=== PATIENT | male | born 1985 | race Two or more races ===

== ENCOUNTER 2017-01-19 11:25 | Emergency (ER) | payer SELFPAY ==
[2017-01-19] MEDS ORDERED: TETANUS/DIPHTHERIA/PERTUSSIS 0.5 ML SYRINGE IM ONE ×2 (12:48→13:04)
--- NOTE | 2017-01-19 12:49 | ED Physician Documentation ---
PD HPI UPPER EXT INJURY - Stated complaint Stated Complaint: LT MIDDLE FINGER LAC - Chief complaint Chief Complaint: Laceration - History obtained from History obtained from: Patient - History of Present Illness Location: Other (Right-handed gentleman with unknown tetanus status was working on his own roof at home and lost his balance and impacted the left middle finger on a skill saw and has a jagged extensive laceration at the level of the distal phalanx.) Review of Systems Constitutional: reports: Reviewed and negative Nose: reports: Rhinorrhea / runny nose Throat: reports: Reviewed and negative Cardiac: reports: Reviewed and negative PD PAST MEDICAL HISTORY - Present Medications Home Medications: Ambulatory Orders Medication Instructions Recorded Confirmed Cephalexin [Keflex] 500 mg PO QID #40 capsule 01/19/17 HYDROcod/ACETAM 5/325 [[place] 5/325] 1 - 2 ea PO Q6H PRN #15 tablet 01/19/17 - Allergies Allergies/Adverse Reactions: Allergies Allergy/AdvReac Type Severity Reaction Status Date / Time No Known Drug Allergies Allergy Verified 01/19/17 12:51 PD ED PE NORMAL - Vitals Vital signs reviewed: Yes - General General: Alert and oriented X 3, No acute distress - Extremities Extremities: Other (There is a jagged laceration going around the tip of the left third finger, involving most of the pulp and then around on the radial side through the mid nail with partial loss of the nailbed. Surprisingly he does seem to have intact sensation at the tip, tendon function will be addressed during laceration repair after digital anesthetic.) - Neuro Neuro: Alert and oriented X 3, Normal speech - Psych Psych: Normal mood, Normal affect Results - Vitals Vitals: Vital Signs - 24 hr 01/19/17 01/19/17 11:31 13:54 Temperature 36.9 C 36.6 C Heart Rate 60 61 Respiratory 18 18 Rate Blood Pressure 150/95 H 136/84 H O2 Saturation 97 98 Oxygen O2 Source Room air Procedures - Laceration (location) Left 3rd finger Length in cm: 2 Wound type: Curved, Contaminated, Other (The nail was removed using blunt dissection, both the nailbed and the tip were tacked back on, the bony bits were debrided sharply.) Neurovascular status: Sensory intact, Motor intact Tendon involvement: Tendon intact Anesthesia: Marcaine 0.5% Wound Preparation: Chlorhexadine, Irrigated copiously NS Skin layer closure: Nylon, Interrupted, Size #-0 - enter number (4-0) Other: Patient tolerated well, No complications, Neurovascular intact, Tetanus UTD PD MEDICAL DECISION MAKING - ED course ED course: 31-year-old gentleman presents with a near amputation of the left third finger with bone and nail involvement. Dr. Carvalho was consulted by phone he reviewed the x-rays and felt like it would be appropriate for me to suture the tip back on which was done. He was placed on Keflex and tetanus was updated. He will need to follow-up in the clinic for wound care and wound checks, ideally this would be on Tuesday but the clinic is closed on Tuesday so he was advised to call today for an appointment on Tuesday return here on Tuesday for wound check and dressing. Departure - Departure Disposition: Home, Self Care Clinical Impression: Laceration Open fracture of phalanx of finger of left hand Qualifiers: Encounter type: initial encounter Finger: middle finger Phalanx: distal Fracture alignment: displaced Qualified Code(s): S62.633B - Displaced fracture of distal phalanx of left middle finger, initial encounter for open fracture Condition: Good Record reviewed to determine appropriate education?: Yes Instructions: ED Fx Finger Open, ED Laceration Hand Follow-Up: [facility] [Provider Group] Prescriptions: Cephalexin [Keflex] 500 mg PO QID #40 capsule HYDROcod/ACETAM 5/325 [[place] 5/325] 1 - 2 ea PO Q6H PRN #15 tablet PRN Reason: Pain Comments: Call the orthopedics office today for an appointment on Tuesday, return here on Tuesday for wound check and dressing replacements. Your blood pressure was elevated today on check into the emergency department. This does not mean that you have hypertension, it is a common phenomenon to come to the emergency department and have elevated blood pressure. I recommend that she see your primary care physician within the week to have it rechecked when you are feeling better. Do not drink or drive while taking narcotic pain medication. Note that many narcotic pain relievers also contain Tylenol/acetaminophen. Please ensure that your total dose of acetaminophen from all sources does not exceed 3 g (3000 mg) per day. You may get constipated while on this medication. Take a stool softener such as Colace twice a day while you are on it. Also add an [id number] laxative such as senna or MiraLAX on any day that you do not have a bowel movement. If you received a narcotic pain medication or sedative while in the emergency department, do not drive for the next 24 hours. Discharge Date/Time: 01/19/17 13:59
[2017-01-19] MEDS ORDERED: BUPIVACAINE 0.5%-EPI 1:200000 PF 30 ML VIAL ONE (12:53)
[2017-01-19] MEDS ORDERED: LIDOCAINE 2%-EPI 1:100000 20 ML MDV ONE (12:53)
[2017-01-19] MEDS ORDERED: CEPHALEXIN 250 MG CAPSULE PO STA (13:42)
--- NOTE | 2017-01-19 13:50 | XRAY Preliminary Report ---
Exam: XR Finger(s) LT IMPRESSION: Comminuted fracture of the distal tip of the long finger with associated soft tissue swel ling and laceration. [facility] SITE ID: [id number]
--- NOTE | 2017-01-19 13:52 | XRAY Report ---
EXAM: LEFT LONG DIGIT RADIOGRAPHY EXAM DATE: 01/19/2017 01:20 PM. CLINICAL HISTORY: 3rd finger inj. cut middle finger with saw. COMPARISON: None. TECHNIQUE: 3 views. FINDINGS: Bones: There is a comminuted fracture at the distal tip of the long finger. Joints: Normal. No subluxations. Soft Tissues: There is distal soft tissue swelling and laceration. No radiopaque foreign body. IMPRESSION: Comminuted fracture of the distal tip of the long finger with associated soft tissue swel ling and laceration. [facility] Referring Provider Line: [phone] SITE ID: [id number]
[2017-01-19 13:54] VITALS: BP 136/84
[2017-01-19] MEDS ORDERED: CEPHALEXIN 250 MG CAPSULE PO ONE (13:56)
== END 2017-01-19 13:59 | disposition home or self-care (01) ==
LOC: ED 11:25
DX: S62.633B Displaced fracture of distal phalanx of left middle finger, initial encounter for open fracture (principal); W13.2XXA Fall from, out of or through roof, initial encounter; W29.8XXA Contact with other powered hand tools and household machinery, initial encounter; Y92.018 Other place in single-family (private) house as the place of occurrence of the external cause; R03.0 Elevated blood-pressure reading, without diagnosis of hypertension
CPT/HCPCS: 12001; 73140; 90471; 90715; 99283; A9270

== ENCOUNTER 2017-01-21 09:25 | Emergency (ER) | payer SELFPAY ==
[2017-01-21 09:32] VITALS: BP 156/80
[2017-01-21] MEDS ORDERED: BACITRACIN OINT TOP STA (09:43)
--- NOTE | 2017-01-21 09:46 | ED Physician Documentation ---
PD HPI WOUND RECHECK - Stated complaint Stated Complaint: WOUND CHECK - Chief complaint Chief Complaint: Ext Problem - Histroy obtained from History obtained from: Patient - History of Present Illness Location: Left Hand (left middle finger) Timing - onset: Yesterday Recently seen: Emergency Dept (yesterday) - Additional information Additional information: The patient is a 31-year-old male who was seen in the emergency department yesterday and treated for a near amputation of his left middle finger. He was instructed to return today for wound check. He has no complaints, and specifically denies fever, or significant pain. He has been taking the antibiotic that was prescribed. Review of Systems Constitutional: denies: Fever Skin: denies: Rash Neurologic: denies: Focal weakness, Numbness, Headache PD PAST MEDICAL HISTORY - Past Medical History Endocrine/Autoimmune: None - Past Surgical History Past Surgical History: No - Present Medications Home Medications: Ambulatory Orders Medication Instructions Recorded Confirmed Cephalexin [Keflex] 500 mg PO QID #40 capsule 01/19/17 01/21/17 HYDROcod/ACETAM 5/325 [[place] 5/325] 1 - 2 ea PO Q6H PRN #15 tablet 01/19/17 - Allergies Allergies/Adverse Reactions: Allergies Allergy/AdvReac Type Severity Reaction Status Date / Time No Known Drug Allergies Allergy Verified 01/19/17 12:51 - Social History Does the pt smoke?: Yes Smoking Status: Current some day smoker Does the pt drink ETOH?: Yes Does the pt have substance abuse?: No - Immunizations Immunizations are current?: No Immunizations: TDAP >10years/unknown - POLST Patient has POLST: No PD ED PE NORMAL - Vitals Vital signs reviewed: Yes (initially hypertensive.) - General General: Alert and oriented X 3, Well developed/nourished - HEENT HEENT: Atraumatic - Respiratory Respiratory: No respiratory distress - Extremities Extremities: Other (Tube gauze dressing was removed from the left middle finger. The finger tip is intact with sutures. There is no surrounding erythema or lymphangitic streaking. There is no ongoing hemorrhage. Light touch sensation is remarkably intact.) - Neuro Neuro: Alert and oriented X 3 Results - Vitals Vitals: Oxygen O2 Source Room air PD MEDICAL DECISION MAKING - ED course Complexity details: reviewed old records, d/w patient ED course: The patient presented for wound check as instructed after repair of left finger injury yesterday. Inspection today reveals no evidence of infection, and distal neurovascular appears to be intact. Antibiotic ointment and new tube gauze dressing was applied. Departure - Departure Disposition: 01 Home, Self Care Clinical Impression: Encounter for wound re-check Condition: Stable Instructions: ED Laceration Amputation Finger Tip Open Tx Follow-Up: [facility] [Provider Group] Comments: 1. Keep the wound clean and dry. 2. Keep your left hand elevated as much the time as possible. 3. Continue taking antibiotic medication as previously prescribed. 4. Follow-up in orthopedic clinic on Tuesday as scheduled. 5. Return to the emergency department if any sign of infection, markedly increasing pain, or otherwise worsening symptoms. Discharge Date/Time: 01/21/17 10:10
== END 2017-01-21 10:10 | disposition home or self-care (01) ==
LOC: ED 09:25
DX: S68.123A Partial traumatic metacarpophalangeal amputation of left middle finger, initial encounter (principal); W45.8XXA Other foreign body or object entering through skin, initial encounter; F17.200 Nicotine dependence, unspecified, uncomplicated
CPT/HCPCS: 99282; 99283

== ENCOUNTER 2017-05-19 08:00 | Outpatient (CLI) | payer MEDICAID ==
[2017-05-19 12:54] LABS: BASOPHILS # (AUTO) 0.1 10^3/uL (0.0-0.1); BASOPHILS % (AUTO) 0.9 %; EOSINOPHILS # (AUTO) 0.2 10^3/uL (0.0-0.7); EOSINOPHILS % (AUTO) 3.9 %; HGB - HEMOGLOBIN 16.3 g/dL (14.0-18.0); LYMPHOCYTES # (AUTO) 1.8 10^3/uL (1.5-3.5); LYMPHOCYTES % (AUTO) 29.3 %; MEAN CORPUSCULAR HEMOGLOBIN 30.1 pg (27.0-31.0); MEAN CORPUSCULAR VOLUME 86.1 fL (80.0-94.0); MEAN PLATELET VOLUME 8.8 fL (7.4-11.4); MONOCYTES # (AUTO) 0.4 10^3/uL (0.0-1.0); MONOCYTES % (AUTO) 6.2 %; NEUTROPHILS # (AUTO) 3.7 10^3/uL (1.5-6.6); NEUTROPHILS % (AUTO) 59.7 %; PLT - PLATELET COUNT 211 10^3/uL (130-450); RED BLOOD COUNT 5.42 10^6/uL (4.70-6.10); RED CELL DISTRIBUTION WIDTH 13.5 % (12.0-15.0); WHITE BLOOD COUNT 6.2 x10^3/uL (4.8-10.8)
[2017-05-19 13:16] LABS: ALBUMIN 4.4 g/dL (3.2-5.5); ALBUMIN/GLOBULIN RATIO 1.5 (1.0-2.2); ALKALINE PHOSPHATASE 65 IU/L (42-121); ALT ALANINE AMINOTRANSFERASE 43 IU/L (10-60); AST ASPARTATE AMINOTRANSFERASE 23 IU/L (10-42); BILIRUBIN,TOTAL 0.6 mg/dL (0.2-1.0); BUN - BLOOD UREA NITROGEN 24 mg/dL (6-20); CALCIUM 8.9 mg/dL (8.5-10.3); CARBON DIOXIDE - CO2 26 mmol/L (21-32); CHLORIDE 105 mmol/L (101-111); CHOL/HDL RATIO 3.9 (<5.0); CHOLESTEROL 226 mg/dL; CREATININE 0.9 mg/dL (0.6-1.2); GFR - MDRD 98 (>89); GLUCOSE 99 mg/dL (70-100); HDL CHOLESTEROL 58 mg/dL; LDL CHOLESTEROL,CALCULATED 155 mg/dL; LDL/HDL RATIO 2.7 (<3.6); SODIUM 135 mmol/L (135-145); TOTAL PROTEIN 7.3 g/dL (6.7-8.2); VLDL CHOLESTEROL 13 mg/dL
== END 2017-05-19 08:01 ==
LOC: LAB.N 08:00
PROVIDERS: ATTEND Family Medicine
DX: E66.9 Obesity, unspecified (principal); R03.0 Elevated blood-pressure reading, without diagnosis of hypertension
CPT/HCPCS: 36415; 80053; 80061; 84443; 85025

== ENCOUNTER 2019-01-19 07:08 | Outpatient (CLI) | payer MEDICAID ==
[2019-01-19 12:30] LABS: BASOPHILS # (AUTO) 0.1 10^3/uL (0.0-0.1); EOSINOPHILS # (AUTO) 0.3 10^3/uL (0.0-0.7); EOSINOPHILS % (AUTO) 5.5 %; HGB - HEMOGLOBIN 14.9 g/dL (14.0-18.0); LYMPHOCYTES # (AUTO) 1.8 10^3/uL (1.5-3.5); LYMPHOCYTES % (AUTO) 35.8 %; MEAN CORPUSCULAR HEMOGLOBIN 29.6 pg (27.0-31.0); MEAN CORPUSCULAR HGB CONC 33.2 g/dL (32.0-36.0); MEAN CORPUSCULAR VOLUME 89.1 fL (80.0-94.0); MEAN PLATELET VOLUME 10.7 fL (7.4-11.4); MONOCYTES # (AUTO) 0.3 10^3/uL (0.0-1.0); MONOCYTES % (AUTO) 6.3 %; NEUTROPHILS # (AUTO) 2.6 10^3/uL (1.5-6.6); NEUTROPHILS % (AUTO) 51.2 %; PLT - PLATELET COUNT 213 10^3/uL (130-450); RED BLOOD COUNT 5.04 10^6/uL (4.70-6.10); WHITE BLOOD COUNT 5.1 x10^3/uL (4.8-10.8)
[2019-01-19 12:48] LABS: HB2 TOTAL 15.7 g/dL; HEMOGLOBIN A1C 0.6 g/dL; HEMOGLOBIN A1C % 5.6 % (4.6-6.2)
[2019-01-19 13:14] LABS: ALBUMIN/GLOBULIN RATIO 1.5 (1.0-2.2); ALKALINE PHOSPHATASE 62 IU/L (42-121); ALT ALANINE AMINOTRANSFERASE 23 IU/L (10-60); AST ASPARTATE AMINOTRANSFERASE 20 IU/L (10-42); BILIRUBIN,TOTAL 0.7 mg/dL (0.2-1.0); BUN - BLOOD UREA NITROGEN 18 mg/dL (6-20); CALCIUM 8.6 mg/dL (8.5-10.3); CARBON DIOXIDE - CO2 25 mmol/L (21-32); CHLORIDE 109 mmol/L (101-111); CHOL/HDL RATIO 3.2 (<5.0); CHOLESTEROL 199 mg/dL; CREATININE 0.9 mg/dL (0.6-1.2); GFR - MDRD 97 (>89); GLUCOSE 108 mg/dL (70-100); HDL CHOLESTEROL 63 mg/dL; LDL CHOLESTEROL,CALCULATED 127 mg/dL; SODIUM 140 mmol/L (135-145); TOTAL PROTEIN 6.7 g/dL (6.7-8.2); VLDL CHOLESTEROL 9 mg/dL
== END 2019-01-19 23:59 | disposition home or self-care (01) ==
LOC: LAB.N 07:08
PROVIDERS: ATTEND Family Medicine
DX: R03.0 Elevated blood-pressure reading, without diagnosis of hypertension (principal)
CPT/HCPCS: 36415; 80050; 80061; 83036; 83721